=== PATIENT | female | born 1970 | race American Indian/Alaskan Native ===

== ENCOUNTER 2021-09-05 23:49 | Inpatient (IN) | payer SELFPAY ==
[2021-09-06 03:20] LABS: Basophils % (Auto) 0.2 % (0.0-1.8); Eosinophils # (Auto) 0.1 K/mm3 (0.0-0.4); Eosinophils % (Auto) 0.6 % (0.0-4.3); Hematocrit 42.1 % (30.3-42.9); Hemoglobin 14.1 gm/dl (10.1-14.3); Lymphocytes # (Auto) 0.6 K/mm3 (1.2-5.4); Mean Corpuscular HGB Conc 33 % (30-34); Mean Corpuscular Volume 86 fl (79-97); Monocytes # (Auto) 0.7 K/mm3 (0.0-0.8); Platelet Count 187 K/mm3 (140-440); Red Blood Count 4.88 M/mm3 (3.65-5.03); Red Cell Distribution Width 14.6 % (13.2-15.2)
[2021-09-06 03:36] LABS: Alanine Aminotransferase 19 units/L (7-56); Albumin 3.9 g/dL (3.9-5); Blood Urea Nitrogen 12 mg/dL (7-17); Calcium 9.3 mg/dL (8.4-10.2); Hemolysis Index 6
[2021-09-06 03:45] LABS: BUN/Creatinine Ratio 17
--- NOTE | 2021-09-06 04:09 | Emergency Department Report ---
ED Seizure HPI - General Chief Complaint: Seizure Stated Complaint: SEIZURE Time Seen by Provider: 09/06/21 01:50 Source: patient, EMS Mode of arrival: Stretcher Limitations: No Limitations - History of Present Illness Initial Comments: HPI provided by charge nurseEthan. Patient unable to provide history secondary to seizure and having been given Ativan by EMS. Patient is a 50-year-old female with history of seizure disorder, unknown what medications the patient takes, brought in by EMS at the request of the family for the patient having seizures at home. Patient was found per nursing report to have multiple witnessed seizures. EMS states that the patient manifested seizures in route to the hospital and she was given Ativan 2 mg IV push. No further information provided at this time given patient's mental status. Unable to assess pain scale. MD Complaint: seizure -: unknown Witnessed:: Yes Trauma: No Seizure History: none Place: home Possible Precipitating Event: other (EMS states family reports that the patient has been noncompliant with her seizure medication) Associated Symptoms: other (unknown) Treatments Prior to Arrival: benzodiazepines - Related Data Allergies Allergy/AdvReac Type Severity Reaction Status Date / Time Unable to Assess Allergy Unverified 09/06/21 04:39 ED Review of Systems ROS: Stated complaint: SEIZURE Other details as noted in HPI Comment: Unobtainable due to pts medical conditions ED Past Medical Hx - Past Medical History Previous Medical History?: Yes Hx Seizures: Yes ED Physical Exam - General Limitations: Altered Mental Status General appearance: postictal - Head Head exam: Present: atraumatic, normocephalic, normal inspection - Eye Eye exam: Present: normal appearance, EOMI - ENT ENT exam: Present: normal exam, mucous membranes moist, normal external ear exam - Neck Neck exam: Present: normal inspection - Respiratory Respiratory exam: Present: normal lung sounds bilaterally - Cardiovascular Cardiovascular Exam: Present: regular rate, normal rhythm, normal heart sounds - GI/Abdominal GI/Abdominal exam: Present: soft, distended, normal bowel sounds - Back Exam Back exam: Present: normal inspection, full ROM - Neurological Exam Neurological exam: Present: motor sensory deficit, reflexes normal, other (post ictal; asleep but arousable) - Psychiatric Psychiatric exam: Present: normal mood - Skin Skin exam: Present: warm, dry, intact, normal color ED Course Vital Signs 09/06/21 09/06/21 09/06/21 00:58 01:16 01:30 Temperature 98.2 F Pulse Rate 90 90 95 H Respiratory 16 16 15 Rate Blood Pressure 149/98 143/119 Blood Pressure 182/107 [Right] O2 Sat by Pulse 96 96 97 Oximetry 09/06/21 09/06/21 01:46 02:00 Temperature Pulse Rate 96 H 95 H Respiratory 14 16 Rate Blood Pressure 141/115 143/119 Blood Pressure [Right] O2 Sat by Pulse 97 98 Oximetry - Reevaluation(s) Reevaluation #1: 09/06/21 04:09 pt reassessed, she is asleep but you are easily arousable, no drooling no stri anita ED Medical Decision Making - Lab Data Result diagrams: 09/06/21 03:01 09/06/21 03:01 - EKG Data -: EKG Interpreted by Me EKG shows normal: sinus rhythm Rate: normal - EKG Data When compared to previous EKG there are: no significant change Interpretation: no acute changes, normal EKG - Radiology Data Radiology results: report reviewed - Medical Decision Making 50-year-old obese female with, per EMS, history of seizure disorder and hypertension, brought in by EMS at the request of the family given the patient had multiple witnessed seizures prior to arrival. Additionally EMS reports that the patient began seizing and route to the hospital and she received Ativan 2 mg IV push. Patient observed here for several hours and she has not returned to her normal mental status baseline. She has no evidence of recurrent persistent seizures while here. However given that the patient has not returned to a mental status baseline that is normal, she will be admitted to the hospitalist service for further management. Case reviewed with admitting hospitalist Dr. Hendrickson. Patient's care has been transferred to him for hospitalist admission Critical care attestation.: If time is entered above; I have spent that time in minutes in the direct care of this critically ill patient, excluding procedure time. ED Disposition Clinical Impression: Seizure disorder Disposition: ADMITTED INPATIENT Is pt being admited?: Yes Does the pt Need Aspirin: No Condition: Stable Referrals: PRIMARY CARE, [Primary Care Provider] - 3-5 Days
[2021-09-06] MEDS ORDERED: SODIUM CHLORIDE 0.9% 1000 ML 1,000 ML IV ONE (04:32)
--- NOTE | 2021-09-06 05:02 | Cat Scan Report ---
CT head without contrast INDICATION : seizure disorder. TECHNIQUE: Axial imaging performed from the skull apex through the skull base without the use of con trast. All CT scans at this location are performed using CT dose reduction for ALARA by means of aut omated exposure control. COMPARISON: None FINDINGS: Parenchyma: No mass, stroke or hemorrhage. Ventricles: Ventricles are normal in size and appear symmetric. Soft tissues: Soft tissues including the orbits appear normal. Bones: No acute osseous abnormality. Sinuses: Sinuses and mastoid air cells are clear. IMPRESSION: No acute abnormality. Evaluation limited by motion. Signer Name: Ady Garcia MD Signed: 09/06/2021 4:58 AM Workstation Name: [id number]
[2021-09-06] MEDS ORDERED: MORPHINE 4 MG/1 ML INJ IV PRN (05:23)
[2021-09-06] MEDS ORDERED: ACETAMINOPHEN 325 MG TAB PO PRN (05:23)
[2021-09-06] MEDS ORDERED: ONDANSETRON 4 MG/2 ML INJ IV PRN (05:23)
[2021-09-06] MEDS ORDERED: ALBUTEROL 2.5 MG/3 ML NEBU IH PRN (05:23)
[2021-09-06] MEDS ORDERED: MORPHINE 2 MG/1 ML INJ IV PRN (05:23)
[2021-09-06] MEDS ORDERED: LORazepam 2 MG/ML VIAL IV PRN (05:26)
[2021-09-06 05:27] LABS: Bilirubin,Urine NEG (Negative); Blood,Urine SM (Negative); Color,Urine Yellow (Yellow); Urobilinogen,Urine < 2.0 mg/dL (<2.0)
[2021-09-06 05:28] LABS: Mucus,Urine FEW /HPF
--- NOTE | 2021-09-06 05:31 | History and Physical Report ---
History of Present Illness Date of examination: 09/06/21 Date of admission: 09/06/21 Chief complaint: Seizure disorder History of present illness: 50-year-old female with history of seizure disorder, unknown what medications the patient takes, brought in by EMS at the request of the family for the patient having seizures at home. Patient was found per nursing report to have multiple witnessed seizures. EMS states that the patient manifested seizures in route to the hospital and she was given Ativan 2 mg IV push. In the emergency room initial CT scan shows no acute intracranial abnormality. Additionally EMS reports that the patient began seizing and route to the hospital and she received Ativan 2 mg IV push. Patient observed here for several hours and she has not returned to her normal mental status baseline. She has no evidence of recurrent persistent seizures while here. However given that the patient has not returned to a mental status baseline that is normal, she will be admitted to the hospitalist service for further management. Past History Past Medical History: seizures Past Surgical History: No surgical history Social history: no significant social history Family history: hypertension Medications and Allergies Allergies Allergy/AdvReac Type Severity Reaction Status Date / Time Unable to Assess Allergy Unverified 09/06/21 04:39 Active Meds: Active Medications Sodium Chloride (Nacl 0.9% 1000 Ml) 1,000 mls @ 999 mls/hr IV BOLUS ONE Stop: 09/06/21 05:32 Last Admin: 09/06/21 05:24 Dose: 999 mls/hr Review of Systems All systems: negative Constitutional: fatigue, malaise, lethargy, other (Seizure) Exam - Constitutional Vitals: Temp Pulse Resp BP Pulse Ox 98.2 F 95 H 16 143/119 98 09/06/21 00:58 09/06/21 02:00 09/06/21 02:00 09/06/21 02:00 09/06/21 02:00 General appearance: Present: no acute distress, well-nourished - EENT Eyes: Present: PERRL ENT: hearing intact, clear oral mucosa - Neck Neck: Present: supple, normal ROM - Respiratory Respiratory effort: normal Respiratory: bilateral: diminished - Cardiovascular Heart Sounds: Present: S1 & S2. Absent: rub, click - Extremities Extremities: pulses symmetrical, No edema Peripheral Pulses: within normal limits - Abdominal General gastrointestinal: Present: soft, non-tender, non-distended, normal bowel sounds Female genitourinary: Present: normal - Integumentary Integumentary: Present: clear, warm, dry - Musculoskeletal Musculoskeletal: gait normal, strength equal bilaterally - Psychiatric Psychiatric: other (Patient is lethargic) - Neurologic Neurologic: CNII-XII intact, moves all extremities Results - Labs CBC & Chem 7: 09/06/21 03:01 09/06/21 03:01 Labs: Laboratory Last Values WBC 9.9 K/mm3 (4.5-11.0) 09/06/21 03:01 RBC 4.88 M/mm3 (3.65-5.03) 09/06/21 03:01 Hgb 14.1 gm/dl (10.1-14.3) 09/06/21 03:01 Hct 42.1 % (30.3-42.9) 09/06/21 03:01 MCV 86 fl (79-97) 09/06/21 03:01 MCH 29 pg (28-32) 09/06/21 03:01 MCHC 33 % (30-34) 09/06/21 03:01 RDW 14.6 % (13.2-15.2) 09/06/21 03:01 Plt Count 187 K/mm3 (140-440) 09/06/21 03:01 Lymph % (Auto) 6.0 % (13.4-35.0) L 09/06/21 03:01 [place] % (Auto) 7.0 % (0.0-7.3) 09/06/21 03:01 Eos % (Auto) 0.6 % (0.0-4.3) 09/06/21 03:01 Baso % (Auto) 0.2 % (0.0-1.8) 09/06/21 03:01 Lymph # (Auto) 0.6 K/mm3 (1.2-5.4) L 09/06/21 03:01 [place] # (Auto) 0.7 K/mm3 (0.0-0.8) 09/06/21 03:01 Eos # (Auto) 0.1 K/mm3 (0.0-0.4) 09/06/21 03:01 Baso # (Auto) 0.0 K/mm3 (0.0-0.1) 09/06/21 03:01 Seg Neutrophils % 86.2 % (40.0-70.0) H 09/06/21 03:01 Seg Neutrophils # 8.5 K/mm3 (1.8-7.7) H 09/06/21 03:01 Sodium 137 mmol/L (137-145) 09/06/21 03:01 Potassium 3.2 mmol/L (3.6-5.0) L 09/06/21 03:01 Chloride 100.0 mmol/L (98-107) 09/06/21 03:01 Carbon Dioxide 28 mmol/L (22-30) 09/06/21 03:01 Anion Gap 12 mmol/L 09/06/21 03:01 BUN 12 mg/dL (7-17) 09/06/21 03:01 Creatinine 0.7 mg/dL (0.6-1.2) 09/06/21 03:01 Estimated GFR > 60 ml/min 09/06/21 03:01 BUN/Creatinine Ratio 17 % 09/06/21 03:01 Glucose 140 mg/dL (65-100) H 09/06/21 03:01 Calcium 9.3 mg/dL (8.4-10.2) 09/06/21 03:01 Magnesium 1.90 mg/dL (1.7-2.3) 09/06/21 03:01 Total Bilirubin 0.50 mg/dL (0.1-1.2) 09/06/21 03:01 AST 19 units/L (5-40) 09/06/21 03:01 ALT 19 units/L (7-56) 09/06/21 03:01 Alkaline Phosphatase 84 units/L (35-129) 09/06/21 03:01 Total Protein 6.8 g/dL (6.3-8.2) 09/06/21 03:01 Albumin 3.9 g/dL (3.9-5) 09/06/21 03:01 Albumin/Globulin Ratio 1.3 % 09/06/21 03:01 Plasma/Serum Alcohol < 0.01 % (0-0.07) 09/06/21 03:01 - Imaging and Cardiology CT Scan - head: report reviewed Assessment and Plan VTE prophylaxis?: Mechanical Plan of care discussed with patient/family: Yes - Patient Problems (1) Seizure disorder Current Visit: Yes Status: Acute Plan to address problem: Admit the patient to the medical telemetry. Patient is on seizure precaution. NPO. D5 half-normal saline at the rate of 100 cc/h. EEG. Keppra 500 mg IV every 12 hours. Ativan 1 mg IV every 4 hours as needed. Neurology evaluation for further evaluation and management (2) Hypokalemia Current Visit: Yes Status: Acute Plan to address problem: Potassium is supplemented. Recheck BMP in the morning (3) DVT prophylaxis Current Visit: Yes Status: Acute Plan to address problem: SCD for DVT prophylaxis. Pepcid 20 mg IV every 12 hours for GI prophylaxis. Patient is a full code
[2021-09-06 05:35] LABS: Amphetamine Screen,Urine Negative; Benzodiazepines Screen,Urine Negative; Methadone Screen,Urine Negative; Opiate Screen,Urine Negative
[2021-09-06] MEDS ORDERED: POTASSIUM CHLORIDE 40 MEQ in DEXTROSE 10% IN WATER 1,000 ML IV SCH (05:45)
[2021-09-06 05:50] LABS: Cannabinoid Screen,Urine Positive; Cocaine Screen,Urine Positive
[2021-09-06] MEDS: IPRATROPIUM/ALBUTEROL SULFATE 3 ML AMPUL.NEB IH SCH ×3 (08:37→20:00)
[2021-09-06] MEDS: levETIRAcetam 500 MG in DEXTROSE 5% IN WATER 100 ML IV SCH ×2 (09:06→22:44)
[2021-09-06] MEDS: FAMOTIDINE 20 MG/2 ML INJ IV SCH ×2 (09:06→21:14)
--- NOTE | 2021-09-06 09:21 | Electrocardiograph Report ---
[facility] Test Date: 2021-09-06 Test Time: 05:18:50 Pat Name: KRISHAN SCHMITZ Department: Room: A371 1 Gender: F [employer] Co[employer] Operator: KAROLINA : 1970 Requested By: CONSTANTINO RAMIREZ Order Number: [id number] Reading MD: Christopher Turcios Measurements Intervals [place] Rate: 95 P: 49 VT: 162 QRS: 10 QRSD: 89 T: 260 QT: 413 QTc: 518 Interpretive Statements Sinus rhythm Probable left atrial enlargement Abnormal T, consider ischemia, diffuse leads Prolonged QT interval No previous ECG available for comparison Electronically Signed On 09-06-2021 9:20:57 EDT by Christopher Turcios
--- NOTE | 2021-09-06 15:11 | Consultation ---
History of Present Illness Consult date: 09/06/21 Reason for Consult: seizure Chief complaint: nausea/emesis, seizures History of present illness: 50 yo female with "conversion disorder" when asked about her seizure history and she states she takes valium and zoloft "for my seizures because I have conversion" who presents with nausea/emesis that began yesterday morning at work. She was then witnessed with seizure-like activity later in the afternoon. She had urinated on herself with the event. Patient is very sleepy and will not provide any more history. History obtained from family member at bedside. Past History Past Medical History: seizures, other (conversion d/o) Past Surgical History: No surgical history Social history: no significant social history Family history: hypertension Medications and Allergies Allergies Allergy/AdvReac Type Severity Reaction Status Date / Time Unable to Assess Allergy Unverified 09/06/21 04:39 Active Meds: Active Medications Acetaminophen (Acetaminophen 325 Mg Tab) 650 mg PO Q4H PRN PRN Reason: Pain MILD(1-3)/Fever >100.5/ASKEW Albuterol (Albuterol 2.5 Mg/3 Ml Nebu) 2.5 mg IH Q3HRT PRN PRN Reason: Shortness Of Breath Albuterol/Ipratropium (Ipratropium/Albuterol Sulfate 3 Ml Ampul.Neb) 1 ampul IH Q6HRT [facility] Last Admin: 09/06/21 13:55 Dose: 1 ampul Famotidine (Famotidine 20 Mg/2 Ml Inj) 20 mg IV BID [facility] Last Admin: 09/06/21 09:06 Dose: 20 mg Dextrose/Sodium Chloride (D5/0.45ns) 1,000 mls @ 100 mls/hr IV DIRECT BENJA Levetiracetam 500 mg/ Dextrose 105 mls @ 400 mls/hr IV Q12HR [facility] Last Admin: 09/06/21 09:06 Dose: 400 mls/hr Potassium Chloride 40 meq/ (Dextrose) 1,020 mls @ 75 mls/hr IV DIRECT BENJA Stop: 09/06/21 16:00 Last Admin: 09/06/21 06:49 Dose: 75 mls/hr Lorazepam (Lorazepam 2 Mg/Ml Vial) 1 mg IV Q4H PRN PRN Reason: Seizures Morphine Sulfate (Morphine 2 Mg/1 Ml Inj) 2 mg IV Q4H PRN PRN Reason: Pain, Moderate (4-6) Morphine Sulfate (Morphine 4 Mg/1 Ml Inj) 4 mg IV Q4H PRN PRN Reason: Pain , Severe (7-10) Ondansetron HCl (Ondansetron 4 Mg/2 Ml Inj) 4 mg IV Q8H PRN PRN Reason: Nausea And Vomiting Sodium Chloride (Sodium Chloride 0.9% 10 Ml Flush Syringe) 10 ml IV BID BENJA Last Admin: 09/06/21 09:06 Dose: 10 ml Sodium Chloride (Sodium Chloride 0.9% 10 Ml Flush Syringe) 10 ml IV PRN PRN PRN Reason: LINE FLUSH Review of Systems ROS unobtainable: due to mental status Physical Examination - Vital Signs Vital Signs: Vital Signs Temp Pulse Resp BP Pulse Ox 98.2 F 90 16 182/107 96 09/06/21 00:58 09/06/21 00:58 09/06/21 00:58 09/06/21 00:58 09/06/21 00:58 - Physical Exam Narrative exam: Gen: nad, well-nourished; Head: normocephalic; Eyes: no gaze deviation; no ptosis; ENT: normal vocalization; CVS: warm and well-perfused; Pulm: no respiratory distress; GI: appears non-distended; Ext: no cyanosis appreciated at distal extremities; Skin: no acute rash at distal extremities; Heme: no pathologic ecchymosis appreciated at distal extremities; Neuro: deeply somnolent, oriented to name, age, , but not current month or year; mild dysarthria, no aphasia, CN 2 - visual lubin grossly intact, CN 3, 4, 6 - no dysconjugate or gaze deviation, CN 5 / 7 - blinks spontaneously, CN 8 - hearing grossly intact, CN 9, 10 - swallows spontaneously, CN 11 symmetric shoulder movement, CN 12 - tongue appears midline; Motor - at least 3+/5 at all exts; Sensory - pt is not cooperative, Cerebellar - pt is not cooperative, Gait - deferred secondary to fall risk; Results - Laboratory Findings CBC and BMP: 09/06/21 03:01 09/06/21 03:01 Abnormal Lab Findings: Abnormal Labs 09/06/21 09/06/21 03:01 03:01 Lymph % (Auto) 6.0 L Lymph # (Auto) 0.6 L Seg Neutrophils % 86.2 H Seg Neutrophils # 8.5 H Potassium 3.2 L Glucose 140 H Assessment and Plan 50 yo female with "conversion disorder" when asked about her seizure history and she states she takes valium and zoloft "for my seizures because I have conversion" who presents with nausea/emesis that began yesterday morning at work. She was then witnessed with seizur-like activity later in the afternoon. 1. Seizure - keppra 750 mg po bid; mri brain w/ wo contrast; eeg; seizure rest riction / precautions; metabolic, toxic, infectious trigger per primary team. 2. Nausea / Emesis - workup per primary team. 3. Hx of Pseudoseizure (Conversion d/o) / Anxiety / Depression - outpatient regimen o/w per primary team. 4. Obesity - outpatient weight loss program via pcp. 5. Followup with Neurology in 4 weeks. Seizure restrictions including no driving. Xu Ha MD Neurology [id number]
[2021-09-06] MEDS: D5W/0.45% NACL 1,000 ML IV SCH (17:26)
--- NOTE | 2021-09-06 20:46 | Event Note ---
Date: 09/06/21 Patient was admitted early this morning with seizures Neurology evaluated the patient, have seen and examined the patient Medications reviewed, agree with the current management Follow neuro work-up, continue seizure precautions DC planning per case management when medically stable
[2021-09-07] MEDS: IPRATROPIUM/ALBUTEROL SULFATE 3 ML AMPUL.NEB IH SCH (01:28)
[2021-09-07 05:02] LABS: Blood Urea Nitrogen 6 mg/dL (7-17); Calcium 8.8 mg/dL (8.4-10.2); Hemolysis Index 1
[2021-09-07 05:04] LABS: BUN/Creatinine Ratio 9
[2021-09-07 05:08] LABS: Hematocrit 38.7 % (30.3-42.9); Hemoglobin 12.3 gm/dl (10.1-14.3); Mean Corpuscular HGB Conc 32 % (30-34); Mean Corpuscular Volume 88 fl (79-97); Platelet Count 171 K/mm3 (140-440); Red Cell Distribution Width 14.5 % (13.2-15.2)
[2021-09-07 05:26] VITALS: BP 141/87
[2021-09-07 06:57] LABS: Basophils % (Manual) 0 % (0.0-1.8); Total Cells Counted 100
[2021-09-07 06:58] LABS: Anisocytosis 1+; Large Platelets Few; Platelet Estimate Consistent w Auto
[2021-09-07] MEDS: levETIRAcetam 500 MG in DEXTROSE 5% IN WATER 100 ML IV SCH (12:31)
[2021-09-07] MEDS: FAMOTIDINE 20 MG/2 ML INJ IV SCH (12:32)
[2021-09-07] MEDS: D5W/0.45% NACL 1,000 ML IV SCH (12:32)
--- NOTE | 2021-09-07 16:38 | Discharge Summary ---
Providers - Providers Date of Admission: 09/06/21 05:23 Date of discharge: 09/07/21 Attending physician: REYNA DAVALOS 09/06/21 05:23 Consult to Physician [CONS] Routine Comment: Consulting Provider: JEOVANY JOSEPH Physician Instructions: Reason For Exam: seizure Primary care physician: [employer] Hospitalization Reason for admission: Seizures/nausea vomiting Condition: Stable Pertinent studies: CT head without contrast no acute abnormality noted evaluation limited due to motion Hospital course: 50-year-old obese female patient with significant past medical history of depression anxiety, pseudoseizures, conversion disorder was admitted through emergency room with witnessed seizure. Patient received Keppra and Ativan in the emergency room CT head without contrast did not show any acute abnormalities Evaluated by neurology Dr. Leland Mcnair who started on Keppra and patient was on seizure precautions Patient's symptoms significantly improved no new episodes of seizures during the hospital stay Patient was counseled to quit recreational drug use alcohol and tobacco patient verbalized understanding. Patient also advised seizure precautions, advised not to drive per [place]ley law until cleared by neurology or primary care physician patient is hemodynamically and clinically stable at discharge Discharge diagnosis --Seizure disorder --history of pseudoseizures/conversion disorder --intractable nausea vomiting --History of anxiety and depression -- Hypokalemia --polysubstance abuse --ongoing tobacco use --Recreational drug use [cocaine, marijuana] --alcohol abuse --Obesity BMI 32.2 --DVT prophylaxis Disposition: 01 HOME / SELF CARE / HOMELESS Final Discharge Diagnosis (Prints w/discharge instructions): Seizures. History of seizures /conversion disorder. Intractable nausea vomiting. History of anxiety depression. Hypokalemia. Polysubstance abuse. Ongoing tobacco use. Medication and abuse[cocaine and marijuana]. Alcohol abuse. Obesity BMI 32.2. DVT prophylaxis Time spent for discharge: 35 min Core Measure Documentation - Palliative Care Palliative Care/ Comfort Measures: Not Applicable - Core Measures Any of the following diagnoses?: none Exam - Constitutional Vitals: Temp Pulse Resp BP Pulse Ox 98.5 F 88 20 141/87 99 09/07/21 05:25 09/07/21 05:25 09/07/21 05:25 09/07/21 05:25 09/07/21 08:51 General appearance: Present: no acute distress, well-nourished - EENT Eyes: Present: PERRL, EOM intact - Neck Neck: Present: supple, normal ROM - Respiratory Respiratory effort: normal Respiratory: bilateral: diminished, negative: rales, rhonchi, wheezing - Cardiovascular Rhythm: regular Heart Sounds: Present: S1 & S2 - Extremities Extremities: no ischemia, No edema - Abdominal General gastrointestinal: Present: soft, non-tender, non-distended, normal bowel sounds - Integumentary Integumentary: Present: clear, warm - Musculoskeletal Musculoskeletal: strength equal bilaterally - Psychiatric Psychiatric: appropriate mood/affect, cooperative - Neurologic Neurologic: moves all extremities Plan Activity: advance as tolerated, no driving until cleared by PCP, fall precautions, other (Seizure precautions) Diet: other (Cardiac diet) Special Instructions: smoking cessation Additional Instructions: If you have worsening symptoms contact MD or go to the nearest emergency room as needed. Seizure precautions, do not drive until cleared by neurology/PMD. Advised to follow private psychiatrist/. Advised to follow private neurologist per schedule Follow up with: PRIMARY CARE, [Primary Care Provider] - 3-5 Days JORGE MELENDEZ MD [Staff Physician] - 7 Days CULLEN TRENT MD [Staff Physician] - 14 Days Prescriptions: amLODIPine 10 mg PO DAILY #30 levETIRAcetam [Keppra TAB] 750 mg PO BID #60 Atorvastatin Calcium [Lipitor] 40 mg PO QHS #30 Pantoprazole [Protonix TAB] 40 mg PO QDAY #20 Sertraline HCl [Zoloft] 50 mg PO DAILY #20
[2021-09-07] MEDS ORDERED: POTASSIUM CHLORIDE ER 20 MEQ TAB PO SCH (16:41)
[2021-09-07] MEDS ORDERED: FAMOTIDINE 20 MG TAB PO SCH (22:00)
[2021-09-07] MEDS ORDERED: levETIRAcetam 500 MG/5 ML ORAL LIQD PO SCH (22:00)
== END 2021-09-07 18:05 | disposition home or self-care (01) | DRG 101 ==
LOC: ED 23:49 → 3A 09-06 05:23
PROVIDERS: ADMIT Hospitalist; ATTEND Internal Medicine
DX: G40.909 Epilepsy, unspecified, not intractable, without status epilepticus (principal); E87.6 Hypokalemia; E66.9 Obesity, unspecified; F10.10 Alcohol abuse, uncomplicated; F41.9 Anxiety disorder, unspecified; Z82.49 Family history of ischemic heart disease and other diseases of the circulatory system; Z68.32 Body mass index [BMI] 32.0-32.9, adult
CPT/HCPCS: 36415; 70450; 80048; 80053; 80307; 80320; 81001; 83735; 85007; 85025; 93005; 94640; G0378; J3490; J7060; J7070; G0480; J1953; J2270; J3480; J7030